=== PATIENT | female | born 1975 | race Caucasian/White ===

== ENCOUNTER 2017-03-04 17:05 | Inpatient (IN) | payer MEDICAID, SELFPAY ==
--- NOTE | 2017-03-04 19:49 | C.PDOC ---
Time Seen by Provider: 03/04/17 19:48 Chief Complaint (Nursing): Dizziness/Lightheaded Past Medical History Vital Signs: Last Vital Signs Temp 98.8 F 03/04/17 17:56 Pulse 93 H 03/04/17 17:56 Resp 20 03/04/17 17:56 BP 105/65 03/04/17 17:56 Pulse Ox 100 03/04/17 17:56 - Social History Hx Alcohol Use: No Hx Substance Use: No - Immunization History Hx Tetanus Toxoid Vaccination: Yes Hx Influenza Vaccination: No Hx Pneumococcal Vaccination: No ED Course And Treatment O2 Sat by Pulse Oximetry: 100 Disposition Counseled Patient/Family Regarding: Studies Performed, Diagnosis - Disposition Disposition Time: 19:49
--- NOTE | 2017-03-04 19:51 | C.PDOC ---
History Of Present Illness 41 year old female presents to the ED c/o generalized weakness and malaise, patient states she feels very weak when she walks. Patient is also c/o a dull throbbing headache, she also reports that for the last 2 weeks has noticed some rectal bleeding with bowel movements. Patient's LMP was last week. Patient denies nausea, vomit, diarrhea, back pain, vaginal discharge, vaginal bleeding. Time Seen by Provider: 03/04/17 19:48 Chief Complaint (Nursing): Dizziness/Lightheaded History Per: Patient History/Exam Limitations: no limitations Onset/Duration Of Symptoms: Days Current Symptoms Are (Timing): Still Present Recent travel outside of the [place]: No Additional History Per: Patient Past Medical History Reviewed: Historical Data, Nursing Documentation, Vital Signs Vital Signs: Last Vital Signs Temp 97.8 F 03/04/17 20:20 Pulse 86 03/04/17 20:20 Resp 18 03/04/17 20:20 BP 120/49 L 03/04/17 20:20 Pulse Ox 100 03/04/17 21:16 - Medical History PMH: No Chronic Diseases Surgical History: No Surg Hx Family History: States: No Known Family Hx - Social History Hx Alcohol Use: No Hx Substance Use: No - Immunization History Hx Tetanus Toxoid Vaccination: Yes Hx Influenza Vaccination: No Hx Pneumococcal Vaccination: No Review Of Systems Constitutional: Positive for: Weakness, Malaise. Negative for: Fever, Chills ENT: Negative for: Throat Pain Cardiovascular: Negative for: Chest Pain, Palpitations Respiratory: Negative for: Cough, Shortness of Breath Gastrointestinal: Positive for: Other (rectal bleeding). Negative for: Nausea, Vomiting, Abdominal Pain Genitourinary: Negative for: Dysuria, Vaginal Discharge, Vaginal Bleeding Musculoskeletal: Negative for: Neck Pain Skin: Positive for: Other (very pale). Negative for: Rash Neurological: Positive for: Headache. Negative for: Weakness, Numbness Physical Exam - Physical Exam Appears: Non-toxic Skin: Warm, Dry, Pale Head: Normacephalic Eye(s): bilateral: Normal Inspection Nose: No Discharge, No Deformity Oral Mucosa: Moist Tongue: Other (very pale) Neck: Trachea Midline, Supple Chest: Symmetrical Cardiovascular: Rhythm Regular, No Murmur Respiratory: No Decreased Breath Sounds, No Rales, No Rhonchi, No Wheezing Gastrointestinal/Abdominal: Soft, No Tenderness, No Distention, No Guarding, No Rebound Rectal: No Hemorrhoids, No Tenderness, Other (empty rectal vault) Back: CVA Tenderness Extremity: Normal ROM, No Pedal Edema, No Calf Tenderness, Capillary Refill (< 2 seconds), No Deformity, No Swelling Extremity: Bilateral: Atraumatic, Normal Color And Temperature Pulses: Left Dorsalis Pedis: Normal, Right Dorsalis Pedis: Normal Neurological/Psych: Oriented x3 Gait: Steady ED Course And Treatment - Laboratory Results Result Diagrams: 03/04/17 20:37 03/04/17 20:37 ECG: Interpreted By Me, Viewed By Me ECG Rhythm: Sinus Rhythm (87), Nonspecific Changes O2 Sat by Pulse Oximetry: 100 (On RA) Pulse Ox Interpretation: Normal Progress Note: Plan: -Labs. -IV fluids. -Protonix 80 mg IV. -UA. Patient's Hb was 5.5 Critical Care Time - Critical Care Note Total Time (in mins): 30 Documented critical care: time excludes all time spent performing seperately billable procedures. Disposition Discussed With DrJemma: Miky Boo Comment: accepted the pt on his service and took over the care at 9:25 PM Doctor Will See Patient In The: ED Counseled Patient/Family Regarding: Studies Performed, Diagnosis - Disposition Disposition: HOSPITALIZED Disposition Time: 19:51 Condition: FAIR Forms: [facility] (Tuvaluan) - POA Present On Arrival: None - Clinical Impression Clinical Impression: Dizziness, Anemia, GI bleed - Scribe Statement The provider has reviewed the documentation as recorded by the Scribe Micheal Marroquin All medical record entries made by the Scribe were at my direction and personally dictated by me. I have reviewed the chart and agree that the record accurately reflects my personal performance of the history, physical exam, medical decision making, and the department course for this patient. I have also personally directed, reviewed, and agree with the discharge instructions and disposition. Decision To Admit - Pt Status Changed To: Hospital Disposition Of: Inpatient - Admit Certification Admit to Inpatient:: After my assessment, the patient will require hospitalization for at least two midnights. This is because of the severity of symptoms shown, intensity of services needed, and/or the medical risk in this patient being treated as an outpatient. - InPatient: Physician Admission Certification: I certify that this patient requires 2 or more midnights of care for the following reason:: After my assessment, the patient will require hospitalization for at least two midnights. This is because of the severity of symptoms shown, intensity of services needed, and/or the medical risk in this patient being treated as an outpatient. - . Bed Request Type: Regular Admitting Physician: Miky Boo Patient Diagnosis: Dizziness, Anemia, GI bleed
[2017-03-04] MEDS ORDERED: Sodium Chloride 0.9% 1,000 ML IV ONE (19:59)
[2017-03-04] MEDS ORDERED: Pantoprazole 80 MG in Sodium Chloride 0.9% 100 ML IV STA (19:59)
[2017-03-04] MEDS ORDERED: Sodium Chloride 0.9% 1,000 ML ONE (20:15)
[2017-03-04 20:56] LABS: BASO # 0.1 K/uL (0.0-0.2); BASO % 0.9 % (0.0-2.0); EOS # 0.5 K/uL (0.0-0.7); LYMPH # 3.8 K/uL (1.0-4.3); LYMPH % 30.2 % (20.0-40.0); MEAN CORPUSCULAR HEMOGLOBIN 19.4 pg (27.0-31.0); MEAN CORPUSCULAR HGB CONC 29.9 g/dL (33.0-37.0); MEAN PLATELET VOLUME 7.5 fL (7.2-11.7); MONO # 1.1 K/uL (0.0-0.8); MONO % 8.5 % (0.0-10.0); NEUT # 7.1 K/uL (1.8-7.0); NEUT % 56.4 % (50.0-75.0); NRBC % 0.3 % (0.0-2.0); RBC 2.67 Mil/uL (3.80-5.20); RED CELL DISTRIBUTION WIDTH 19.1 % (11.5-14.5)
[2017-03-04 20:57] LABS: MEAN CELL VOLUME 64.8 fL (81.0-99.0); WHITE BLOOD COUNT 12.6 K/uL (4.8-10.8)
[2017-03-04 20:58] LABS: HEMOGLOBIN 5.2 g/dL (11.0-16.0); PROTHROMBIN TIME 11.3 SECONDS (9.7-12.2)
[2017-03-04 21:01] LABS: ALBUMIN 3.9 g/dL (3.5-5.0); ALT/SGPT 29 U/L (9-52); AST/SGOT 18 U/L (14-36); BLOOD UREA NITROGEN 10 mg/dL (7-17); CALCIUM 8.5 mg/dl (8.6-10.4); GFR AFRICAN-AMERICAN > 60; GFR NON-AFRICAN AMERICAN > 60
[2017-03-04 21:07] LABS: HCG,QUALITATIVE URINE NEGATIVE (NEGATIVE); SQUAMOUS EPITHIAL 1 /hpf (0-5); URINE BILIRUBIN NEGATIVE (NEGATIVE); URINE BLOOD NEGATIVE (NEGATIVE); URINE CLARITY Clear (Clear); URINE COLOR Yellow (YELLOW); URINE GLUCOSE (UA) NORMAL (Normal); URINE LEUKOCYTE ESTERASE NEG Leu/uL (Negative); URINE NITRATE NEGATIVE (NEGATIVE); URINE PROTEIN NEGATIVE (NEGATIVE); URINE UROBILINOGEN NORMAL mg/dL (0.2-1.0)
[2017-03-04] MEDS ORDERED: Iohexol 240 (50 ml) PO ONE (21:24)
--- NOTE | 2017-03-04 21:28 | CP.PCM.HP ---
<Nciole Palacios - Last Filed: 03/05/17 01:09> History of Present Illness - History of Present Illness History of Present Illness: Medicine Note for Hospitalist Service CC: blood through rectum x 7 days HPI: 41 Female with no significant PMHx presents to the ED with rectal bleeding x 7 days. Patient reports on 02/25/17 she started to have bowel movements with BRBPR x 2-3 episodes daily. She reports not suffering from constipation so she would have normal daily BM. However, starting last week she would have 2-3 bloody BM daily. She started to feel dizzy, lightheaded, SOB, chest discomfort, weakness, and fatigue on 03/02/17. She reported this happened to her 3-4 months ago, lasting 2-3 days and then resolved on its own. She understood this is abnormal but was hesitant to come to the hospital. Last bloody BM was day of admission at 4 PM. Denied any endoscopy or colonoscopy in the past. Admitted to chills, chest discomfort, SOB, and weakness. Denied fever , headache, abdominal pain, n/v/d/c, or urinary symptoms. PMHx: Denied PSHx: Denied Meds: Denied SHx: Denied x3 FHx: Mother of colon cancer (age 50-60s) OBHx/GYNHx: LMP 02/23/17, normal menses every month, lasting 5-6 days using average 3-4 pads per day. 8 vaginal deliveries with no complications, no blood transfusions in the past. PMD: None Present on Admission - Present on Admission Any Indicators Present on Admission: No Past Patient History - Past Social History Smoking Status: Never Smoked - PSYCHIATRIC Hx Substance Use: No - SURGICAL HISTORY Hx Surgeries: No Meds Allergies/Adverse Reactions: Allergies Allergy/AdvReac Type Severity Reaction Status Date / Time No Known Allergies Allergy Verified 03/04/17 17:58 Physical Exam - Constitutional Appears: No Acute Distress - Head Exam Head Exam: NORMAL INSPECTION, NORMOCEPHALIC - Eye Exam Eye Exam: EOMI, PERRL (Conjunctival pallor ) Pupil Exam: NORMAL ACCOMODATION - ENT Exam ENT Exam: Mucous Membranes Moist Additional comments: sublingual pallor - Neck Exam Neck exam: Positive for: Normal Inspection - Respiratory Exam Respiratory Exam: Clear to Auscultation Bilateral, NORMAL BREATHING PATTERN. absent: Decreased Breath Sounds - Cardiovascular Exam Cardiovascular Exam: Tachycardia, Systolic Murmur (noted ) - GI/Abdominal Exam GI & Abdominal Exam: Hypoactive Bowel Sounds, Normal Bowel Sounds, Soft. absent : Distended, Firm, Guarding, Hernia, Mass, Organomegaly, Rigid, Tenderness - Rectal Exam Rectal Exam: Deferred (SOLOMON performed by ED physician. No external hemorrhoids, no stool in rectal vault. No blood on exam.) - Extremities Exam Extremities exam: Positive for: normal inspection, pedal pulses present. Negative for: pedal edema, tenderness - Back Exam Back exam: NORMAL INSPECTION - Neurological Exam Neurological exam: Alert, CN II-XII Intact, Oriented x3 - Psychiatric Exam Psychiatric exam: Normal Affect, Normal Mood - Skin Skin Exam: Dry, Intact, Normal Color, Warm Results - Vital Signs Recent Vital Signs: Last Vital Signs Temp 97.8 F 03/04/17 20:20 Pulse 86 03/04/17 20:20 Resp 18 03/04/17 20:20 BP 120/49 L 03/04/17 20:20 Pulse Ox 100 03/04/17 21:27 - Labs Result Diagrams: 03/04/17 20:37 03/04/17 20:37 Labs: Laboratory Results - last 24 hr 03/04/17 03/04/17 03/04/17 20:37 20:37 20:37 WBC 12.6 H D RBC 2.67 L Hgb 5.2 L* D Hct 17.3 L MCV 64.8 L D MCH 19.4 L MCHC 29.9 L RDW 19.1 H Plt Count 594 H D MPV 7.5 Neut % (Auto) 56.4 Lymph % (Auto) 30.2 Weld % (Auto) 8.5 Eos % (Auto) 4.0 Baso % (Auto) 0.9 Neut # 7.1 H Lymph # 3.8 Weld # 1.1 H Eos # 0.5 Baso # 0.1 PT 11.3 INR 1.0 APTT 26 Sodium Potassium Chloride Carbon Dioxide Anion Gap BUN Creatinine Est GFR ( Amer) Est GFR (Non-Af Amer) Random Glucose Calcium Total Bilirubin AST ALT Alkaline Phosphatase Total Protein Albumin Globulin Albumin/Globulin Ratio Urine Color Yellow Urine Clarity Clear Urine pH 6.0 Ur Specific [place] 1.016 Urine Protein Negative Urine Glucose (UA) Normal Urine Ketones Negative Urine Blood Negative Urine Nitrate Negative Urine Bilirubin Negative Urine Urobilinogen Normal Ur Leukocyte Esterase Neg Urine WBC (Auto) < 1 Urine RBC (Auto) < 1 Ur Squamous Epith Cells 1 Urine HCG, Qual Negative Stool Occult Blood Blood Type 03/04/17 03/04/17 03/04/17 20:37 20:37 21:06 WBC RBC Hgb Hct MCV MCH MCHC RDW Plt Count MPV Neut % (Auto) Lymph % (Auto) Weld % (Auto) Eos % (Auto) Baso % (Auto) Neut # Lymph # Weld # Eos # Baso # PT INR APTT Sodium 136 Potassium 4.0 Chloride 104 Carbon Dioxide 22 Anion Gap 14 BUN 10 Creatinine 0.6 L Est GFR ( Amer) > 60 Est GFR (Non-Af Amer) > 60 Random Glucose 104 Calcium 8.5 L Total Bilirubin 0.4 AST 18 ALT 29 Alkaline Phosphatase 138 H Total Protein 7.9 Albumin 3.9 Globulin 4.0 H Albumin/Globulin Ratio 1.0 Urine Color Urine Clarity Urine pH Ur Specific [place] Urine Protein Urine Glucose (UA) Urine Ketones Urine Blood Urine Nitrate Urine Bilirubin Urine Urobilinogen Ur Leukocyte Esterase Urine WBC (Auto) Urine RBC (Auto) Ur Squamous Epith Cells Urine HCG, Qual Stool Occult Blood Negative Blood Type O POSITIVE Assessment & Plan - Assessment and Plan (Free Text) Assessment: 1 Female with no significant PMHx presents to the ED with rectal bleeding x 7 days, suspecting lower GI bleed. Plan: Suspecting Chronic Lower GI Bleed GI consulted - Dr. Young - help appreciated SOLOMON performed by ED physician, no external hemorrhoids, no stool in rectal vault, no blood noted FOBT negative Imaging: CT Scan Abdomen/Pelvis with PO & IV contrast: Meds: NPO, NS @ 100cc/hr Was placed on Protonix Drip in the ED Zofran PRN Iron Deficiency Anemia Last visit was in 2013 H/H was 9.8/30.4 (patient was at the time) On admission: H/H 5.2/17.3 Consent obtained, will be transfused 2 units PRBCs Anemia workup drawn prior to blood transfusion, pending further labs, Iron < 10 Will need to start IV Ferrlecit Prophylactic Measures GI PPX: Protonix 40mg IVP daily DVT PPX: SCDs, VTE c/i NPO DW Dr. BooNicole DO, PGY-1 <[email or web address] P - Last Filed: 03/05/17 06:37> Results - Vital Signs Recent Vital Signs: Last Vital Signs Temp 98.5 F 03/05/17 06:00 Pulse 86 03/05/17 06:00 Resp 18 03/05/17 06:00 BP 102/60 03/05/17 06:00 Pulse Ox 99 03/05/17 06:00 - Labs Result Diagrams: 03/04/17 20:37 03/04/17 20:37 Labs: Laboratory Results - last 24 hr 03/04/17 03/04/17 03/04/17 20:37 20:37 20:37 WBC 12.6 H D RBC 2.67 L Hgb 5.2 L* D Hct 17.3 L MCV 64.8 L D MCH 19.4 L MCHC 29.9 L RDW 19.1 H Plt Count 594 H D MPV 7.5 Neut % (Auto) 56.4 Lymph % (Auto) 30.2 Weld % (Auto) 8.5 Eos % (Auto) 4.0 Baso % (Auto) 0.9 Neut # 7.1 H Lymph # 3.8 Weld # 1.1 H Eos # 0.5 Baso # 0.1 PT 11.3 INR 1.0 APTT 26 Sodium Potassium Chloride Carbon Dioxide Anion Gap BUN Creatinine Est GFR ( Amer) Est GFR (Non-Af Amer) Random Glucose Calcium Iron TIBC % Saturation Ferritin Total Bilirubin AST ALT Alkaline Phosphatase Total Protein Albumin Globulin Albumin/Globulin Ratio Vitamin B12 Urine Color Yellow Urine Clarity Clear Urine pH 6.0 Ur Specific [place] 1.016 Urine Protein Negative Urine Glucose (UA) Normal Urine Ketones Negative Urine Blood Negative Urine Nitrate Negative Urine Bilirubin Negative Urine Urobilinogen Normal Ur Leukocyte Esterase Neg Urine WBC (Auto) < 1 Urine RBC (Auto) < 1 Ur Squamous Epith Cells 1 Urine HCG, Qual Negative Stool Occult Blood Blood Type Antibody Screen 03/04/17 03/04/17 03/04/17 20:37 20:37 21:06 WBC RBC Hgb Hct MCV MCH MCHC RDW Plt Count MPV Neut % (Auto) Lymph % (Auto) Weld % (Auto) Eos % (Auto) Baso % (Auto) Neut # Lymph # Weld # Eos # Baso # PT INR APTT Sodium 136 Potassium 4.0 Chloride 104 Carbon Dioxide 22 Anion Gap 14 BUN 10 Creatinine 0.6 L Est GFR ( Amer) > 60 Est GFR (Non-Af Amer) > 60 Random Glucose 104 Calcium 8.5 L Iron TIBC % Saturation Ferritin Total Bilirubin 0.4 AST 18 ALT 29 Alkaline Phosphatase 138 H Total Protein 7.9 Albumin 3.9 Globulin 4.0 H Albumin/Globulin Ratio 1.0 Vitamin B12 Urine Color Urine Clarity Urine pH Ur Specific [place] Urine Protein Urine Glucose (UA) Urine Ketones Urine Blood Urine Nitrate Urine Bilirubin Urine Urobilinogen Ur Leukocyte Esterase Urine WBC (Auto) Urine RBC (Auto) Ur Squamous Epith Cells Urine HCG, Qual Stool Occult Blood Negative Blood Type O POSITIVE Antibody Screen Negative 03/04/17 03/04/17 23:25 23:25 WBC RBC Hgb Hct MCV MCH MCHC RDW Plt Count MPV Neut % (Auto) Lymph % (Auto) Weld % (Auto) Eos % (Auto) Baso % (Auto) Neut # Lymph # Weld # Eos # Baso # PT INR APTT Sodium Potassium Chloride Carbon Dioxide Anion Gap BUN Creatinine Est GFR ( Amer) Est GFR (Non-Af Amer) Random Glucose Calcium Iron < 10 L TIBC 445 % Saturation 2.2 L Ferritin 16.6 Total Bilirubin AST ALT Alkaline Phosphatase Total Protein Albumin Globulin Albumin/Globulin Ratio Vitamin B12 501 Urine Color Urine Clarity Urine pH Ur Specific [place] Urine Protein Urine Glucose (UA) Urine Ketones Urine Blood Urine Nitrate Urine Bilirubin Urine Urobilinogen Ur Leukocyte Esterase Urine WBC (Auto) Urine RBC (Auto) Ur Squamous Epith Cells Urine HCG, Qual Stool Occult Blood Blood Type Antibody Screen Attending/Attestation - Attestation I have personally seen and examined this patient.: Yes I have fully participated in the care of the patient.: Yes I have reviewed all pertinent clinical information: Yes Notes (Text): Assessment * Iron def, anemia with rectal bleeding mixed with stool, 7 day history but likely chronic due to microcytosis, maintained vital, no malignancy on ct abd/ pelvis. * 8 vaginal deliveries living children Plan * PRBC * GI for colonoscopy * supplement iron * avoid meds for dvt prophylaxis due to gi bleeding. * See orderer for detail.
[2017-03-04] MEDS ORDERED: Iohexol 240 (50 ml) ONE (22:01)
[2017-03-04] MEDS ORDERED: Iohexol 350mg/ml 100 ML ONE (22:16)
[2017-03-04 23:38] LABS: IRON < 10 ug/dL (37-170)
[2017-03-04] MEDS: Sodium Chloride 0.9% 1,000 ML IV SCH (23:45)
[2017-03-04 23:49] LABS: % IRON SATURATION 2.2 (20-55); TOTAL IRON BINDING CAPACITY 445 ug/dL (250-450)
[2017-03-05 00:13] LABS: FERRITIN 16.6 ng/mL
[2017-03-05] MEDS ORDERED: Ferric Sodium Gluconat Complex 62.5 mg/5 ml Vial IVPB SCH (10:00)
[2017-03-05 10:30] LABS: BASO # 0.1 K/uL (0.0-0.2); BASO % 0.8 % (0.0-2.0); EOS # 0.4 K/uL (0.0-0.7); EOS % 4.1 % (0.0-4.0); LYMPH # 2.6 K/uL (1.0-4.3); MEAN CORPUSCULAR HEMOGLOBIN 22.3 pg (27.0-31.0); MEAN CORPUSCULAR HGB CONC 31.5 g/dL (33.0-37.0); MEAN PLATELET VOLUME 7.4 fL (7.2-11.7); MONO # 0.8 K/uL (0.0-0.8); MONO % 8.8 % (0.0-10.0); NEUT # 5.4 K/uL (1.8-7.0); NEUT % 58.3 % (50.0-75.0); NRBC % 0.2 % (0.0-2.0); RBC 3.14 Mil/uL (3.80-5.20); RED CELL DISTRIBUTION WIDTH 25.9 % (11.5-14.5); WHITE BLOOD COUNT 9.3 K/uL (4.8-10.8)
[2017-03-05 10:31] LABS: MEAN CELL VOLUME 70.7 fL (81.0-99.0)
[2017-03-05] MEDS: Ferric Sodium Gluconat Complex 125 MG in Sodium Chloride 0.9% 100 ML IVPB SCH (11:00)
[2017-03-05] MEDS: Sodium Chloride 0.9% 1,000 ML IV SCH ×2 (11:06→19:20)
[2017-03-05 11:26] LABS: ALBUMIN 3.4 g/dL (3.5-5.0); ALT/SGPT 33 U/L (9-52); AST/SGOT 18 U/L (14-36); BLOOD UREA NITROGEN 6 mg/dL (7-17); CALCIUM 8.1 mg/dl (8.6-10.4); GFR AFRICAN-AMERICAN > 60; GFR NON-AFRICAN AMERICAN > 60; HDL CHOLESTEROL 19 mg/dL (30-70); MAGNESIUM 2.1 mg/dL (1.6-2.3)
[2017-03-05 11:36] LABS: LDL CHOLESTEROL 80 mg/dL (0-129)
--- NOTE | 2017-03-05 11:36 | CT ---
PROCEDURE: CT abdomen and pelvis dated 03/04/2017 HISTORY: GI bleed COMPARISON: No prior TECHNIQUE: Contiguous axial images of the abdomen and pelvis pelvis following oral and intravenous contrast. Coronal and sagittal reformats generated. Radiation dose: Total exam DLP = 1121.95 mGy-cm. This CT exam was performed using one or more of the following dose reduction techniques: Automated exposure control, adjustment of the mA and/or kV according to patient size, and/or use of iterative reconstruction technique. Contrast dose: 100 cc Omnipaque 350 FINDINGS: LOWER THORAX: Lung bases clear. No infiltrate effusion or basilar pneumothorax. There is a small hiatal hernia with slight wall thickening of the distal esophagus that could be due to protrusion of gastric mucosa. Esophagitis or other intrinsic/invasive wall lesion should be excluded. Consider followup endoscopy. LIVER: The liver is enlarged measuring nearly 21 cm in CC dimension. Very minor diffuse fatty hepatic infiltration. No obvious hepatic mass collection or calcification. Portal and splenic veins are opacified. GALLBLADDER AND BILE DUCTS: Gallbladder is physiologically distended. No evidence of intraluminal gallbladder calculi. PANCREAS: The pancreas appears grossly unremarkable without masses collections or calcifications. SPLEEN: Spleen exhibits normal size. There is a small calcification within the posteromedial aspect of the splenic parenchyma which appears to be associated with a small round/ elliptical shaped 11 mm enhancing mass that could represent a small splenic artery aneurysm or possibly a hemangioma. Followup ultrasound recommended to further characterize this area. ADRENALS: There are no adrenal lesions. KIDNEYS AND URETERS: Kidneys that demonstrate symmetric the nephrograms. No evidence of nephrolithiasis or hydronephrosis. . There is a small approximately 0.5 mm rounded focus of low attenuation posterior inferior aspect left renal cortex that exhibits Hounsfield units in the negative single digits. This could represent a small angiomyolipoma. Consider followup renal ultrasound for further evaluation. BLADDER: Grossly the urinary bladder is physiologically distended. No evidence of intraluminal urinary bladder calculi. REPRODUCTIVE: Uterus appears grossly unremarkable. . Small prominent follicular cyst or small ovarian cyst right ovary. Consider followup pelvic ultrasound the the APPENDIX: The appendix is not seen with certainty on this exam. No evidence suggest acute appendicitis. BOWEL: Evaluation of the bowel is limited due to incomplete opacification. Prominent rugal folds of could be in part due to incomplete distention however gastritis must be excluded. Clinical correlation recommended. Visualized loops of small bowel exhibit normal contour and caliber. No evidence acute mechanical small bowel obstruction. There are a few scattered colonic diverticula however no radiographic evidence of acute diverticulitis. PERITONEUM: Unremarkable. No fluid collection. No free air. Small fat containing umbilical hernia LYMPH NODES: No significant bulky adenopathy. . VASCULATURE: Unremarkable. No aortic aneurysm. BONES: Few small scattered lucencies seen throughout the lumbar and lower thoracic spine nonspecific. Consider follow-up bone scan to exclude aggressive pathology OTHER FINDINGS: None. IMPRESSION: Mild hepatomegaly and fatty hepatic infiltration. . Small calcifications associated surrounding and/or adjacent to of white appears represent a small approximately 11 mm mass density located in the splenic hilar region. . Rule out small hemangioma or possibly splenic artery aneurysm. . Consider follow-up of ultrasound for further evaluation Small hiatal hernia with wall thickening of the distal esophagus and prominent gastric rugal folds ; followup endoscopy recommended further evaluation. 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 Few scattered colonic diverticula however no radiographic evidence of acute diverticulitis. Few small scattered lucencies seen throughout the lumbar and lower thoracic spine nonspecific. Consider follow-up bone scan to exclude aggressive pathology Suspect a small ovarian cyst or prominent follicular cyst right ovary. Consider followup pelvic ultrasound Note this report was placed in PA review folder for followup Follow-up CT scan at interval recommended to assess stability.
--- NOTE | 2017-03-05 12:49 | CARD ---
APPROVED REPORT EKG Measurement Heart [id number] <Conclusion> Normal sinus rhythm Normal ECG
[2017-03-05] MEDS ORDERED: Peg-Electrolyte Oral Soln 4L (Golytely) PO ONE (18:00)
--- NOTE | 2017-03-05 18:45 | CP.PCM.PN ---
<Tomer Murray - Last Filed: 03/05/17 18:56> Subjective - Date & Time of Evaluation Date of Evaluation: 03/05/17 Time of Evaluation: 06:41 - Subjective Subjective: Dr. Hector Goode Service, Tomer Murray PGY1 Patient was seen and examined at bedside. Per nursing no acute events occurred overnight. The patient was reporting some fatigue this morning and also some dizziness. At the time of examination the patient had yet to have a bowel movement. The patient denies any chest pain, abdominal pain, fevers, chills, changes in vision, nausea, vomiting, or any other complaints. Objective - Vital Signs/Intake and Output Vital Signs (last 24 hours): Temp Pulse Resp BP Pulse Ox 97.8 F 76 20 104/64 96 03/05/17 17:59 03/05/17 16:00 03/05/17 16:00 03/05/17 16:00 03/05/17 16:00 - Medications Medications: Current Medications Sodium Chloride (Sodium Chloride 0.9%) 1,000 mls @ 100 mls/hr IV .Q10H [facility] Last Admin: 03/05/17 11:06 Dose: 100 mls/hr Ferric Sodium Gluconate Complex 125 mg/ Sodium Chloride 110 mls @ 110 mls/hr IVPB DAILY [facility] Stop: 03/13/17 10:01 Last Admin: 03/05/17 11:00 Dose: 110 mls/hr Ondansetron HCl (Zofran Inj) 4 mg IVP Q6 PRN PRN Reason: Nausea/Vomiting Pantoprazole Sodium (Protonix Inj) 40 mg IVP DAILY [facility] Last Admin: 03/05/17 11:00 Dose: 40 mg Polyethylene Glycol/Electrolytes (Golytely) 2,000 ml PO ONCE ONE Stop: 03/06/17 06:01 - Labs Labs: 03/05/17 10:07 03/05/17 04:00 PT 11.3 SECONDS (9.7-12.2) 03/04/17 20:37 INR 1.0 03/04/17 20:37 APTT 26 SECONDS (21-34) 03/04/17 20:37 - Head Exam Head Exam: ATRAUMATIC, NORMAL INSPECTION, NORMOCEPHALIC - Eye Exam Eye Exam: EOMI, Normal appearance, PERRL Pupil Exam: NORMAL ACCOMODATION, PERRL. absent: Irregular, Unequal - ENT Exam ENT Exam: Mucous Membranes Moist, Normal Exam, Normal Oropharynx - Neck Exam Neck Exam: absent: Lymphadenopathy, Thyromegaly - Respiratory Exam Respiratory Exam: Clear to Ausculation Bilateral, NORMAL BREATHING PATTERN. absent: Prolonged Expiratory Phase, Respiratory Distress - Cardiovascular Exam Cardiovascular Exam: REGULAR RHYTHM, RRR, +S1, +S2. absent: Gallop, Rubs - GI/Abdominal Exam GI & Abdominal Exam: Soft, Normal Bowel Sounds. absent: Hyperactive Bowel Sounds - Extremities Exam Extremities Exam: Normal Inspection. absent: Joint Swelling, Pedal Edema, Tenderness - Back Exam Back Exam: NORMAL INSPECTION. absent: CVA tenderness (L), CVA tenderness (R), paraspinal tenderness - Neurological Exam Neurological Exam: Alert, Awake, CN II-XII Intact, Oriented x3 - Psychiatric Exam Psychiatric exam: Normal Affect, Normal Mood - Skin Skin Exam: Dry, Intact, Normal Color Assessment and Plan - Assessment and Plan (Free Text) Assessment: 41 Female with no significant PMHx presents to the ED with rectal bleeding x 7 days, suspecting lower GI bleed. Plan: Suspecting Chronic Lower GI Bleed GI consulted - Dr. Hoang- help appreciated SOLOMON performed by ED physician, no external hemorrhoids, no stool in rectal vault, no blood noted FOBT negative Expected to have 2 Units of PRBC tranfused. Follow up with 5a.m. CBC. Expected to have Colonoscopy on Thursday possibly. Will f/u with GI rec's. Imaging: CT Scan Abdomen/Pelvis with PO & IV contrast: mild hepatomegaly and fatty hepatic infiltration. small calcifications associated surrounding adjacent to white appears to reprsent a small approximatlely 11mm mass density located in the splenic hilar region. rule out small hemagioma, small hiatal hernia, suspect small ovarian cyst or prominent follicular cyst right ovary (For full report see Imaging report) Meds: Liquid diet, Continue NS @100CC/HR Continue Protonix Drip Continue Zofran PRN Iron Deficiency Anemia Last visit was in 2013 H/H was 9.8/30.4 (patient was at the time) On admission: H/H 5.2/17.3 Consent obtained. There was a delay in transfusion today. Expected to be transfused overnight. Patient will have a repeat CBC done at 5 a.m. Anemia workup: Iron < 10, TIBC:445, % Saturation 2.2, Ferritin :166 Continue IV Ferrlecit Prophylactic Measures GI PPX: Protonix 40mg IVP daily DVT PPX: SCDs, VTE c/i Disposition: Patient is a full code Elected Neel to be her proxy in case she can no longer make medical decisions. <Hector Goode - Last Filed: 03/05/17 20:13> Objective - Vital Signs/Intake and Output Vital Signs (last 24 hours): Temp Pulse Resp BP Pulse Ox 98.2 F 78 20 106/65 96 03/05/17 20:03 03/05/17 20:03 03/05/17 20:03 03/05/17 20:03 03/05/17 16:00 Intake and Output: 03/05/17 03/06/17 18:59 06:59 Intake Total 0 Balance 0 - Medications Medications: Current Medications Sodium Chloride (Sodium Chloride 0.9%) 1,000 mls @ 100 mls/hr IV .Q10H [facility] Last Admin: 03/05/17 19:20 Dose: Not Given Ferric Sodium Gluconate Complex 125 mg/ Sodium Chloride 110 mls @ 110 mls/hr IVPB DAILY [facility] Stop: 03/13/17 10:01 Last Admin: 03/05/17 11:00 Dose: 110 mls/hr Ondansetron HCl (Zofran Inj) 4 mg IVP Q6 PRN PRN Reason: Nausea/Vomiting Pantoprazole Sodium (Protonix Inj) 40 mg IVP DAILY [facility] Last Admin: 03/05/17 11:00 Dose: 40 mg Polyethylene Glycol/Electrolytes (Golytely) 2,000 ml PO ONCE ONE Stop: 03/06/17 06:01 - Labs Labs: 03/05/17 10:07 03/05/17 04:00 PT 11.3 SECONDS (9.7-12.2) 03/04/17 20:37 INR 1.0 03/04/17 20:37 APTT 26 SECONDS (21-34) 03/04/17 20:37 Attending/Attestation - Attestation I have personally seen and examined this patient.: Yes I have fully participated in the care of the patient.: Yes I have reviewed all pertinent clinical information, including history, physical exam and plan: Yes Notes (Text): 03/05/17 20:12 Patient was seen and examined at 9:15 AM in the ER 03/05/17 with Daughter present who translated Algerian. History, Exam, Assessment and Plan were thoroughly gone over with the resident. Hector Goode D.O.
[2017-03-06] MEDS: Sodium Chloride 0.9% 1,000 ML IV SCH (04:20)
[2017-03-06] MEDS ORDERED: Peg-Electrolyte Oral Soln 4L (Golytely) PO ONE (06:00)
[2017-03-06] MEDS: Ferric Sodium Gluconat Complex 125 MG in Sodium Chloride 0.9% 100 ML IVPB SCH (10:46)
[2017-03-06 11:03] LABS: BASO # 0.1 K/uL (0.0-0.2); BASO % 0.9 % (0.0-2.0); EOS # 0.4 K/uL (0.0-0.7); EOS % 4.9 % (0.0-4.0); LYMPH # 2.4 K/uL (1.0-4.3); LYMPH % 32.4 % (20.0-40.0); MEAN CORPUSCULAR HEMOGLOBIN 24.7 pg (27.0-31.0); MEAN CORPUSCULAR HGB CONC 33.4 g/dL (33.0-37.0); MEAN PLATELET VOLUME 7.5 fL (7.2-11.7); MONO # 0.6 K/uL (0.0-0.8); MONO % 7.7 % (0.0-10.0); NEUT # 4.1 K/uL (1.8-7.0); NEUT % 54.1 % (50.0-75.0); NRBC % 0.5 % (0.0-2.0); RBC 3.75 Mil/uL (3.80-5.20); RED CELL DISTRIBUTION WIDTH 26.3 % (11.5-14.5); WHITE BLOOD COUNT 7.5 K/uL (4.8-10.8)
[2017-03-06 11:04] LABS: HEMOGLOBIN 9.2 g/dL (11.0-16.0); MEAN CELL VOLUME 73.9 fL (81.0-99.0)
[2017-03-06 11:10] LABS: ALBUMIN 3.7 g/dL (3.5-5.0); ALT/SGPT 24 U/L (9-52); AST/SGOT 29 U/L (14-36); BLOOD UREA NITROGEN 5 mg/dL (7-17); CALCIUM 8.7 mg/dl (8.6-10.4); GFR AFRICAN-AMERICAN > 60; GFR NON-AFRICAN AMERICAN > 60; MAGNESIUM 2.2 mg/dL (1.6-2.3)
--- NOTE | 2017-03-06 15:19 | CP.PCM.PN ---
<Tomer Murray - Last Filed: 03/06/17 18:47> Subjective - Date & Time of Evaluation Date of Evaluation: 03/06/17 Time of Evaluation: 07:18 - Subjective Subjective: Dr. Hector Goode Service, Tomer Murray PGY1 Patient was seen and examined at bedside. Per nursing no acute events occurred overnight. The patient was reporting some dizziness this morning. The patient denies any blood being present in the stool. The patient denies any chest pain, abdominal pain, fevers, chills, changes in vision, nausea, vomiting, or any other complaints. Objective - Vital Signs/Intake and Output Vital Signs (last 24 hours): Temp Pulse Resp BP Pulse Ox 98.2 F 70 20 127/78 100 03/06/17 08:00 03/06/17 08:00 03/06/17 08:00 03/06/17 08:00 03/06/17 08:00 Intake and Output: 03/06/17 03/06/17 06:59 18:59 Intake Total 2725 760 Balance 2725 760 - Medications Medications: Current Medications Ferric Sodium Gluconate Complex 125 mg/ Sodium Chloride 110 mls @ 110 mls/hr IVPB DAILY [facility] Stop: 03/13/17 10:01 Last Admin: 03/06/17 10:46 Dose: 110 mls/hr Ondansetron HCl (Zofran Inj) 4 mg IVP Q6 PRN PRN Reason: Nausea/Vomiting Pantoprazole Sodium (Protonix Inj) 40 mg IVP DAILY [facility] Last Admin: 03/06/17 10:47 Dose: 40 mg - Labs Labs: 03/06/17 10:37 03/06/17 10:37 PT 11.3 SECONDS (9.7-12.2) 03/04/17 20:37 INR 1.0 03/04/17 20:37 APTT 26 SECONDS (21-34) 03/04/17 20:37 - Head Exam Head Exam: ATRAUMATIC, NORMAL INSPECTION, NORMOCEPHALIC - Eye Exam Eye Exam: EOMI, Normal appearance, PERRL. absent: Periorbital tenderness Pupil Exam: NORMAL ACCOMODATION, PERRL. absent: Irregular, Unequal - ENT Exam ENT Exam: Mucous Membranes Moist, Normal Exam, Normal Oropharynx - Neck Exam Neck Exam: Normal Inspection. absent: Lymphadenopathy, Thyromegaly - Respiratory Exam Respiratory Exam: Clear to Ausculation Bilateral, NORMAL BREATHING PATTERN. absent: Chest Wall Tenderness, Prolonged Expiratory Phase, Respiratory Distress - Cardiovascular Exam Cardiovascular Exam: REGULAR RHYTHM, +S1, +S2 - GI/Abdominal Exam GI & Abdominal Exam: Soft, Normal Bowel Sounds. absent: Rigid, Hyperactive Bowel Sounds - Extremities Exam Extremities Exam: Full ROM, Normal Inspection. absent: Joint Swelling, Pedal Edema - Back Exam Back Exam: NORMAL INSPECTION. absent: CVA tenderness (L), CVA tenderness (R), Full ROM, paraspinal tenderness - Neurological Exam Neurological Exam: Alert, Awake, CN II-XII Intact, Oriented x3 - Psychiatric Exam Psychiatric exam: Normal Affect, Normal Mood. absent: Depressed - Skin Skin Exam: Dry, Intact Assessment and Plan - Assessment and Plan (Free Text) Assessment: 41 Female with no significant PMHx presents to the ED with rectal bleeding x 7 days, suspecting lower GI bleed. Plan: Suspecting Chronic Lower GI Bleed GI consulted - Dr. Hoang- help appreciated SOLOMON performed by ED physician, no external hemorrhoids, no stool in rectal vault, no blood noted FOBT negative Expected to have 2 Units of PRBC tranfused. Repeat CBC was 9.1 Will continue to monitor. Colonoscopy showed some diverticulosis and internal hemorrhoids. No signs of masses. Imaging: CT Scan Abdomen/Pelvis with PO & IV contrast: mild hepatomegaly and fatty hepatic infiltration. small calcifications associated surrounding adjacent to white appears to represent a small approximately 11mm mass density located in the splenic hilar region. rule out small hemagioma, small hiatal hernia, suspect small ovarian cyst or prominent follicular cyst right ovary (For full report see Imaging report) Meds: Heart healthy diet Continue Protonix Continue Zofran PRN Iron Deficiency Anemia Last visit was in 2013 H/H was 9.8/30.4 (patient was at the time) On admission: H/H 5.2/17.3 s/p 2 Units of PRBC's. Anemia workup: Iron < 10, TIBC:445, % Saturation 2.2, Ferritin :166 Continue IV Ferrlecit Prophylactic Measures GI PPX: Protonix 40mg IVP daily DVT PPX: SCDs, VTE c/i Disposition: Patient is a full code Elected Neel to be her proxy in case she can no longer make medical decisions. <Hector Goode - Last Filed: 03/06/17 19:48> Objective - Vital Signs/Intake and Output Vital Signs (last 24 hours): Temp Pulse Resp BP Pulse Ox 97.1 F L 64 12 127/73 100 03/06/17 16:30 03/06/17 17:00 03/06/17 17:00 03/06/17 17:00 03/06/17 17:00 Intake and Output: 03/06/17 03/07/17 18:59 06:59 Intake Total 760 Balance 760 - Medications Medications: Current Medications Ferric Sodium Gluconate Complex 125 mg/ Sodium Chloride 110 mls @ 110 mls/hr IVPB DAILY [facility] Stop: 03/13/17 10:01 Last Admin: 03/06/17 10:46 Dose: 110 mls/hr Ondansetron HCl (Zofran Inj) 4 mg IVP Q6 PRN PRN Reason: Nausea/Vomiting Pantoprazole Sodium (Protonix Inj) 40 mg IVP DAILY [facility] Last Admin: 03/06/17 10:47 Dose: 40 mg - Labs Labs: 03/06/17 10:37 03/06/17 10:37 PT 11.3 SECONDS (9.7-12.2) 03/04/17 20:37 INR 1.0 03/04/17 20:37 APTT 26 SECONDS (21-34) 03/04/17 20:37 Attending/Attestation - Attestation I have personally seen and examined this patient.: Yes I have fully participated in the care of the patient.: Yes I have reviewed all pertinent clinical information, including history, physical exam and plan: Yes Notes (Text): 03/06/17 19:45 Patient was seen and examined at 8:30 AM 03/06/17. Exam, assessment and plan were gone over with the resident. She underwent Colonoscopy and Upper Endoscopy after my exam. Colonoscopy showed Large Internal Hemorrhoids and Diverticulosis involving the Ascending/Transeverse/Sigmoid Colon Upper EGD showed Small Hiatal Hernia and biopsies of the Gastric Antrum and Duodenem were taken. She has received a total of 4 units of blood since her admission. As long as her HgB/Hct remain stable then we will plan for discharge on morning 03/07/17 with further management through [facility]. Hector Goode D.O.
[2017-03-06] MEDS ORDERED: Midazolam 2 MG/2 ML VIAL ONE (15:56)
[2017-03-06] MEDS ORDERED: Propofol 10 mg/ml Inj (20 ML) ONE (15:56)
[2017-03-06] MEDS ORDERED: Lactated Ringer's 1,000 ML IV ONE ×2 (16:00→16:28)
--- NOTE | 2017-03-06 16:49 | CP.PCM.CON ---
History of Present Illness - History of Present Illness History of Present Illness: This is a 41 year old woman with rectal bleeding and anemia. Patient presented to the ER 03/04/2017 with complaints of weakness, headache and rectal bleeding for seven days. She had two or three bowel movments daily for the past week, each with blood. She had a similar episode of bleeding three or four months ago which resolved spontaneously. She then noted dizziness, lightheadedness, difficulty breathing, chest discomfort and fatigue. In the ER, the HGB was 5.2, iron <10, TIBC 445, ferritin 16.6, B12 501, folate pending. She denies having abdominal pain, nausea, vomiting, diarrhea, constipation. Review of Systems - Constitutional Constitutional: Malaise, Weakness. absent: Chills, Fever - Cardiovascular Cardiovascular: absent: Chest Pain, Palpitations - Respiratory Respiratory: absent: Cough, Dyspnea - Gastrointestinal Gastrointestinal: absent: Abdominal Pain, Constipation, Diarrhea, Nausea, Vomiting - Genitourinary Genitourinary: absent: Dysuria Past Patient History - Past Medical History & Family History Past Medical History?: No - Past Social History Smoking Status: Never Smoked - MUSCULOSKELETAL/RHEUMATOLOGICAL Hx Falls: No - PSYCHIATRIC Hx Substance Use: No - SURGICAL HISTORY Hx Surgeries: No - ANESTHESIA Hx Anesthesia: No Meds Allergies/Adverse Reactions: Allergies Allergy/AdvReac Type Severity Reaction Status Date / Time No Known Allergies Allergy Verified 03/04/17 17:58 - Medications Medications: Current Medications Ferric Sodium Gluconate Complex 125 mg/ Sodium Chloride 110 mls @ 110 mls/hr IVPB DAILY [facility] Stop: 03/13/17 10:01 Last Admin: 03/06/17 10:46 Dose: 110 mls/hr Ondansetron HCl (Zofran Inj) 4 mg IVP Q6 PRN PRN Reason: Nausea/Vomiting Pantoprazole Sodium (Protonix Inj) 40 mg IVP DAILY [facility] Last Admin: 03/06/17 10:47 Dose: 40 mg Physical Exam - Constitutional Appears: No Acute Distress - Head Exam Head Exam: ATRAUMATIC - Eye Exam Eye Exam: EOMI, PERRL - Neck Exam Neck exam: Negative for: Lymphadenopathy, Thyromegaly - Respiratory Exam Respiratory Exam: Rales, Rhonchi, Wheezes, NORMAL BREATHING PATTERN - Cardiovascular Exam Cardiovascular Exam: REGULAR RHYTHM, +S1, +S2. absent: Gallop, Rubs, Systolic Murmur - GI/Abdominal Exam GI & Abdominal Exam: Normal Bowel Sounds, Soft. absent: Mass, Organomegaly, Tenderness - Rectal Exam Rectal Exam: Deferred - Extremities Exam Extremities exam: Negative for: calf tenderness, pedal edema Results - Vital Signs Recent Vital Signs: Last Vital Signs Temp 97.1 F L 03/06/17 16:30 Pulse 71 03/06/17 16:30 Resp 12 03/06/17 16:30 BP 102/60 03/06/17 16:30 Pulse Ox 100 03/06/17 16:30 - Labs Result Diagrams: 03/06/17 10:37 03/06/17 10:37 Labs: Laboratory Results - last 24 hr 03/04/17 03/06/17 03/06/17 20:37 07:03 10:37 WBC 7.5 RBC 3.75 L Hgb 9.2 L D Hct 27.7 L MCV 73.9 L D MCH 24.7 L MCHC 33.4 RDW 26.3 H Plt Count 429 H MPV 7.5 Neut % (Auto) 54.1 Lymph % (Auto) 32.4 Cloud % (Auto) 7.7 Eos % (Auto) 4.9 H Baso % (Auto) 0.9 Neut # 4.1 Lymph # 2.4 Cloud # 0.6 Eos # 0.4 Baso # 0.1 Sodium Potassium Chloride Carbon Dioxide Anion Gap BUN Creatinine Est GFR ( Amer) Est GFR (Non-Af Amer) Random Glucose Calcium Phosphorus Magnesium Total Bilirubin AST ALT Alkaline Phosphatase Total Protein Albumin Globulin Albumin/Globulin Ratio Urine HCG, Qual Negative Blood Type O POSITIVE Antibody Screen Negative 03/06/17 10:37 WBC RBC Hgb Hct MCV MCH MCHC RDW Plt Count MPV Neut % (Auto) Lymph % (Auto) Cloud % (Auto) Eos % (Auto) Baso % (Auto) Neut # Lymph # Cloud # Eos # Baso # Sodium 139 Potassium 3.9 Chloride 105 Carbon Dioxide 23 Anion Gap 15 BUN 5 L Creatinine 0.6 L Est GFR ( Amer) > 60 Est GFR (Non-Af Amer) > 60 Random Glucose 86 Calcium 8.7 Phosphorus 4.8 H Magnesium 2.2 Total Bilirubin 0.8 AST 29 ALT 24 Alkaline Phosphatase 113 Total Protein 7.4 Albumin 3.7 Globulin 3.7 Albumin/Globulin Ratio 1.0 Urine HCG, Qual Blood Type Antibody Screen Assessment & Plan (1) Iron deficiency anemia Assessment and Plan: Patient has severe iron deficiency anemia, There is also a family history of colon cancer. CT scan showed a small hiatal hernia with mural thickening of the distal esophagus. Will schedule EGD and colonoscopy. Status: Acute
[2017-03-06 23:39] VITALS: RESP 20
[2017-03-07 06:20] VITALS: O2SAT 97
[2017-03-07 07:52] LABS: BASO # 0.1 K/uL (0.0-0.2); BASO % 0.7 % (0.0-2.0); EOS # 0.4 K/uL (0.0-0.7); EOS % 4.4 % (0.0-4.0); HEMOGLOBIN 9.3 g/dL (11.0-16.0); MEAN CELL VOLUME 73.8 fL (81.0-99.0); MEAN CORPUSCULAR HEMOGLOBIN 24.5 pg (27.0-31.0); MEAN CORPUSCULAR HGB CONC 33.2 g/dL (33.0-37.0); MEAN PLATELET VOLUME 7.5 fL (7.2-11.7); MONO # 0.7 K/uL (0.0-0.8); MONO % 8.3 % (0.0-10.0); NEUT % 61.6 % (50.0-75.0); NRBC % 0.2 % (0.0-2.0); RBC 3.79 Mil/uL (3.80-5.20); WHITE BLOOD COUNT 8.2 K/uL (4.8-10.8)
[2017-03-07 08:21] LABS: ALBUMIN 3.4 g/dL (3.5-5.0); ALT/SGPT 25 U/L (9-52); AST/SGOT 27 U/L (14-36); BLOOD UREA NITROGEN 8 mg/dL (7-17); CALCIUM 8.6 mg/dl (8.6-10.4); GFR AFRICAN-AMERICAN > 60; GFR NON-AFRICAN AMERICAN > 60; MAGNESIUM 2.1 mg/dL (1.6-2.3)
[2017-03-07] MEDS: Ferric Sodium Gluconat Complex 125 MG in Sodium Chloride 0.9% 100 ML IVPB SCH (10:32)
--- NOTE | 2017-03-07 10:34 | CP.PCM.PN ---
Subjective - Date & Time of Evaluation Date of Evaluation: 03/07/17 Time of Evaluation: 10:25 - Subjective Subjective: F/U anemia, GI bleed Covering Dr Zambrano Denies RB, melena, fever, chills, Sz, LOC, SHERIN, cough, abdom pain Objective - Vital Signs/Intake and Output Vital Signs (last 24 hours): Temp Pulse Resp BP Pulse Ox 98.1 F 72 20 101/62 97 03/07/17 06:00 03/07/17 06:00 03/07/17 06:00 03/07/17 06:00 03/07/17 06:00 Intake and Output: 03/07/17 03/07/17 06:59 18:59 Intake Total 400 Balance 400 - Medications Medications: Current Medications Ferric Sodium Gluconate Complex 125 mg/ Sodium Chloride 110 mls @ 110 mls/hr IVPB DAILY [facility] Stop: 03/13/17 10:01 Last Admin: 03/06/17 10:46 Dose: 110 mls/hr Ondansetron HCl (Zofran Inj) 4 mg IVP Q6 PRN PRN Reason: Nausea/Vomiting Pantoprazole Sodium (Protonix Inj) 40 mg IVP DAILY [facility] Last Admin: 03/06/17 10:47 Dose: 40 mg - Labs Labs: 03/07/17 07:44 03/07/17 07:44 PT 11.3 SECONDS (9.7-12.2) 03/04/17 20:37 INR 1.0 03/04/17 20:37 APTT 26 SECONDS (21-34) 03/04/17 20:37 - Constitutional Appears: Well - Neck Exam Neck Exam: absent: Tenderness - Respiratory Exam Respiratory Exam: Clear to Ausculation Bilateral - GI/Abdominal Exam GI & Abdominal Exam: Soft, Normal Bowel Sounds. absent: Tenderness - Neurological Exam Neurological Exam: Alert, Oriented x3 Assessment and Plan (1) Anemia Status: Acute (2) GI bleed Assessment & Plan: EGD and colon done. Hb is stable. Rec: Follow Hbs. No further inpatient GI planned. Status: Acute
[2017-03-07 15:10] VITALS: BP 98/60; PULSE 82; TEMP 98.3
--- NOTE | 2017-03-07 15:51 | CP.PCM.DIS ---
<Tomer Murray - Last Filed: 03/07/17 18:52> Provider - Provider Date of Admission: 03/04/17 21:25 Attending physician: Miky Boo MD Time Spent in preparation of Discharge (in minutes): 45 Hospital Course - Lab Results Lab Results: Most Recent Lab Values WBC 8.2 K/uL (4.8-10.8) 03/07/17 07:44 RBC 3.79 Mil/uL (3.80-5.20) L 03/07/17 07:44 Hgb 9.3 g/dL (11.0-16.0) L 03/07/17 07:44 Hct 27.9 % (34.0-47.0) L 03/07/17 07:44 MCV 73.8 fL (81.0-99.0) L 03/07/17 07:44 MCH 24.5 pg (27.0-31.0) L 03/07/17 07:44 MCHC 33.2 g/dL (33.0-37.0) 03/07/17 07:44 RDW 28.0 % (11.5-14.5) H 03/07/17 07:44 Plt Count 379 K/uL (130-400) 03/07/17 07:44 MPV 7.5 fL (7.2-11.7) 03/07/17 07:44 Neut % (Auto) 61.6 % (50.0-75.0) 03/07/17 07:44 Lymph % (Auto) 25.0 % (20.0-40.0) 03/07/17 07:44 Nelson % (Auto) 8.3 % (0.0-10.0) 03/07/17 07:44 Eos % (Auto) 4.4 % (0.0-4.0) H 03/07/17 07:44 Baso % (Auto) 0.7 % (0.0-2.0) 03/07/17 07:44 Neut # 5.0 K/uL (1.8-7.0) 03/07/17 07:44 Lymph # 2.0 K/uL (1.0-4.3) 03/07/17 07:44 Nelson # 0.7 K/uL (0.0-0.8) 03/07/17 07:44 Eos # 0.4 K/uL (0.0-0.7) 03/07/17 07:44 Baso # 0.1 K/uL (0.0-0.2) 03/07/17 07:44 PT 11.3 SECONDS (9.7-12.2) 03/04/17 20:37 INR 1.0 03/04/17 20:37 APTT 26 SECONDS (21-34) 03/04/17 20:37 Sodium 135 mmol/L (132-148) 03/07/17 07:44 Potassium 3.7 mmol/L (3.6-5.2) 03/07/17 07:44 Chloride 102 mmol/L (98-107) 03/07/17 07:44 Carbon Dioxide 24 mmol/L (22-30) 03/07/17 07:44 Anion Gap 13 (10-20) 03/07/17 07:44 BUN 8 mg/dL (7-17) 03/07/17 07:44 Creatinine 0.7 mg/dL (0.7-1.2) 03/07/17 07:44 Est GFR ( Amer) > 60 03/07/17 07:44 Est GFR (Non-Af Amer) > 60 03/07/17 07:44 Random Glucose 89 mg/dL (65-105) 03/07/17 07:44 Hemoglobin A1c 5.6 % (4.2-6.5) 03/05/17 10:07 Calcium 8.6 mg/dl (8.6-10.4) 03/07/17 07:44 Phosphorus 5.5 mg/dL (2.5-4.5) H 03/07/17 07:44 Magnesium 2.1 mg/dL (1.6-2.3) 03/07/17 07:44 Iron < 10 ug/dL (37-170) L 03/04/17 23:25 TIBC 445 ug/dL (250-450) 03/04/17 23:25 % Saturation 2.2 (20-55) L 03/04/17 23:25 Ferritin 16.6 ng/mL 03/04/17 23:25 Total Bilirubin 0.7 mg/dL (0.2-1.3) 03/07/17 07:44 AST 27 U/L (14-36) 03/07/17 07:44 ALT 25 U/L (9-52) 03/07/17 07:44 Alkaline Phosphatase 107 U/L (38-126) 03/07/17 07:44 Total Protein 6.9 g/dL (6.3-8.3) 03/07/17 07:44 Albumin 3.4 g/dL (3.5-5.0) L 03/07/17 07:44 Globulin 3.5 gm/dL (2.2-3.9) 03/07/17 07:44 Albumin/Globulin Ratio 1.0 (1.0-2.1) 03/07/17 07:44 Triglycerides 147 mg/dL (0-149) 03/05/17 04:00 Cholesterol 133 mg/dL (0-199) 03/05/17 04:00 LDL Cholesterol Direct 80 mg/dL (0-129) 03/05/17 04:00 HDL Cholesterol 19 mg/dL (30-70) L 03/05/17 04:00 Vitamin B12 501 pg/mL (239-931) 03/04/17 23:25 RBC Folate 1011 ng/mL RBC (>280) 03/04/17 07:39 Free T4 1.19 ng/dL (0.78-2.19) 03/05/17 10:07 TSH 3rd Generation 1.41 mIU/L (0.46-4.68) 03/05/17 04:00 Urine Color Yellow (YELLOW) 03/04/17 20:37 Urine Clarity Clear (Clear) 03/04/17 20:37 Urine pH 6.0 (5.0-8.0) 03/04/17 20:37 Ur Specific [place] 1.016 (1.003-1.030) 03/04/17 20:37 Urine Protein Negative mg/dL (NEGATIVE) 03/04/17 20:37 Urine Glucose (UA) Normal mg/dL (Normal) 03/04/17 20:37 Urine Ketones Negative mg/dL (NEGATIVE) 03/04/17 20:37 Urine Blood Negative (NEGATIVE) 03/04/17 20:37 Urine Nitrate Negative (NEGATIVE) 03/04/17 20:37 Urine Bilirubin Negative (NEGATIVE) 03/04/17 20:37 Urine Urobilinogen Normal mg/dL (0.2-1.0) 03/04/17 20:37 Ur Leukocyte Esterase Neg Alexia/uL (Negative) 03/04/17 20:37 Urine WBC (Auto) < 1 /hpf (0-5) 03/04/17 20:37 Urine RBC (Auto) < 1 /hpf (0-3) 03/04/17 20:37 Ur Squamous Epith Cells 1 /hpf (0-5) 03/04/17 20:37 Urine HCG, Qual Negative (NEGATIVE) 03/06/17 07:03 Stool Occult Blood Negative (NEGATIVE) 03/04/17 21:06 Blood Type O POSITIVE 03/04/17 20:37 Antibody Screen Negative 03/04/17 20:37 - Hospital Course Hospital Course: Discharge Summary PMD: None Consults: GI (Dr. Zambrano) PRINCIPAL DISCHARGE DIAGNOSES: Denies CC:bright red blood per rectum HISTORY OF PRESENT ILLNESS: 41 Female with no significant PMHx presents to the ED with rectal bleeding x 7 days. Patient reports on 02/25/17 she started to have bowel movements with BRBPR x 2-3 episodes daily. She reports not suffering from constipation so she would have normal daily BM. However, starting last week she would have 2-3 bloody BM daily. She started to feel dizzy, lightheaded, SOB, chest discomfort, weakness, and fatigue on . She reported this happened to her 3-4 months ago, lasting 2-3 days and then resolved on its own. She understood this is abnormal but was hesitant to come to the hospital. Last bloody BM was day of admission at 4 PM. Denied any endoscopy or colonoscopy in the past. Admitted to chills, chest discomfort, SOB , and weakness. Denied fever, headache, abdominal pain, n/v/d/c, or urinary symptoms. PMHx: Denied PSHx: Denied Meds: Denied SHx: Denied x3 FHx: Mother of colon cancer (age 50-60s) OBHx/GYNHx: LMP 02/23/17, normal menses every month, lasting 5-6 days using average 3-4 pads per day. 8 vaginal deliveries with no complications, no blood transfusions in the past. SUMMARY OF COURSE: 41 year old female with no significant medical history who was admitted between (03/04/17- 03/07/17). While admitted the patient had some imaging, procedures and lab work done. Patient was placed on a Pronix drip while admitted. Patient was found to be iron deficient anemic and was started on iron supplementation. While admitted the patient was seen by GI Dr. Zambrano. It was decided that she was to be have EGD and a Colonoscopy to look for the source of bleeding. Patient was seen by GI again and determined no further inpatient intervention was indicated at this time. Patient was discharged on iron supplementation (See further rec's below). Imaging: Endoscopy: large internal hemorrhoids, diverticulosis EKG: Normal sinus rhythm Abdomen/pelvis CT: mild hepatomegaly, angiomyolipoma, small hiatal hernia (for full report see [employer]) Colonoscopy 03/05: multiple sessile polyps. Biopsy reports pending. (See full report in chart) Endoscopy: Small hiatal hernia (Full report in chart.) DISCHARGE MEDICATIONS: Prescription for Ferrous Sulfate placed in front of chart. Please provide patient with a copy of the following instructions: 1). Schedule follow up with the [facility] located at [facility], [address] [place] [address] in [place], [place] by calling [phone] for an appointment to take place in the next 7 to 10 days. The doctors at this [email or web address] will help you to coordinate your health care. Through the health center you must arrange for the following: Ultrasound of your Abdomen/Pelvis for further evaluation of your spleen and ovaries. Bone Scan of your spine to make sure the lesions that were seen on your spine on CT Scan are benign. Follow up of the biopsies that were taken during your Colonoscopy/Upper Endoscopy. 2). Please have the following prescription filled at your pharmacy: Ferrous Sulfate 325 mg, 1 tablet by mouth 1x/day with breakfast, Disp #30, NO refills 3). Please take care and be well. Discharge Exam - Head Exam Head Exam: ATRAUMATIC, NORMAL INSPECTION, NORMOCEPHALIC - Eye Exam Eye Exam: EOMI, Normal appearance, PERRL. absent: Periorbital tenderness Pupil Exam: NORMAL ACCOMODATION, PERRL. absent: Irregular, Unequal - ENT Exam ENT Exam: Mucous Membranes Moist, Normal Oropharynx - Respiratory Exam Respiratory Exam: Clear to PA & Lateral, NORMAL BREATHING PATTERN, UNREMARKABLE. absent: Decreased Breath Sounds, Rales - Cardiovascular Exam Cardiovascular Exam: REGULAR RHYTHM, RRR, +S1, +S2. absent: Gallop, Rubs - GI/Abdominal Exam GI & Abdominal Exam: Normal Bowel Sounds, Unremarkable. absent: Hypoactive Bowel Sounds, Organomegaly - Extremities Exam Extremities exam: full ROM - Back Exam Back exam: NORMAL INSPECTION. absent: CVA tenderness (L), CVA tenderness (R), paraspinal tenderness - Neurological Exam Neurological exam: Alert, CN II-XII Intact, Oriented x3 - Psychiatric Exam Psychiatric exam: Normal Affect, Normal Mood - Skin Skin Exam: Dry, Intact, Normal Color Discharge Plan - Discharge Medications Prescriptions: Ferrous Sulfate 325 mg PO DAILY #30 tablet - Follow Up Plan Condition: FAIR Disposition: HOME/ ROUTINE Instructions: Ascorbic Acid/Cyanocobalamin/Ferrous Fumarate (By mouth), Gastrointestinal Bleeding (DC), Iron Rich Diet (DC), Iron Deficiency Anemia (DC) , Dizziness (GEN), Anemia (DC) Additional Instructions: Please provide patient with a copy of the following instructions: 1). Schedule follow up with the [facility] located at [facility], [address] [place] [address] in [place], [place] by calling [phone] for an appointment to take place in the next 7 to 10 days. The doctors at this [facility] will help you to coordinate your health care. Through the health center you must arrange for the following: Ultrasound of your Abdomen/Pelvis for further evaluation of your spleen and ovaries. Bone Scan of your spine to make sure the lesions that were seen on your spine on CT Scan are benign. Follow up of the biopsies that were taken during your Colonoscopy/Upper Endoscopy. 2). Please have the following prescription filled at your pharmacy: Ferrous Sulfate 325 mg, 1 tablet by mouth 1x/day with breakfast, Disp #30, NO refills 3). Please take care and be well. Hector Goode D.O. <Hector Goode - Last Filed: 03/07/17 20:24> Provider - Provider Date of Admission: 03/04/17 21:25 Attending physician: Miky Boo MD Hospital Course - Lab Results Lab Results: Most Recent Lab Values WBC 8.2 K/uL (4.8-10.8) 03/07/17 07:44 RBC 3.79 Mil/uL (3.80-5.20) L 03/07/17 07:44 Hgb 9.3 g/dL (11.0-16.0) L 03/07/17 07:44 Hct 27.9 % (34.0-47.0) L 03/07/17 07:44 MCV 73.8 fL (81.0-99.0) L 03/07/17 07:44 MCH 24.5 pg (27.0-31.0) L 03/07/17 07:44 MCHC 33.2 g/dL (33.0-37.0) 03/07/17 07:44 RDW 28.0 % (11.5-14.5) H 03/07/17 07:44 Plt Count 379 K/uL (130-400) 03/07/17 07:44 MPV 7.5 fL (7.2-11.7) 03/07/17 07:44 Neut % (Auto) 61.6 % (50.0-75.0) 03/07/17 07:44 Lymph % (Auto) 25.0 % (20.0-40.0) 03/07/17 07:44 Nelson % (Auto) 8.3 % (0.0-10.0) 03/07/17 07:44 Eos % (Auto) 4.4 % (0.0-4.0) H 03/07/17 07:44 Baso % (Auto) 0.7 % (0.0-2.0) 03/07/17 07:44 Neut # 5.0 K/uL (1.8-7.0) 03/07/17 07:44 Lymph # 2.0 K/uL (1.0-4.3) 03/07/17 07:44 Nelson # 0.7 K/uL (0.0-0.8) 03/07/17 07:44 Eos # 0.4 K/uL (0.0-0.7) 03/07/17 07:44 Baso # 0.1 K/uL (0.0-0.2) 03/07/17 07:44 PT 11.3 SECONDS (9.7-12.2) 03/04/17 20:37 INR 1.0 03/04/17 20:37 APTT 26 SECONDS (21-34) 03/04/17 20:37 Sodium 135 mmol/L (132-148) 03/07/17 07:44 Potassium 3.7 mmol/L (3.6-5.2) 03/07/17 07:44 Chloride 102 mmol/L (98-107) 03/07/17 07:44 Carbon Dioxide 24 mmol/L (22-30) 03/07/17 07:44 Anion Gap 13 (10-20) 03/07/17 07:44 BUN 8 mg/dL (7-17) 03/07/17 07:44 Creatinine 0.7 mg/dL (0.7-1.2) 03/07/17 07:44 Est GFR ( Amer) > 60 03/07/17 07:44 Est GFR (Non-Af Amer) > 60 03/07/17 07:44 Random Glucose 89 mg/dL (65-105) 03/07/17 07:44 Hemoglobin A1c 5.6 % (4.2-6.5) 03/05/17 10:07 Calcium 8.6 mg/dl (8.6-10.4) 03/07/17 07:44 Phosphorus 5.5 mg/dL (2.5-4.5) H 03/07/17 07:44 Magnesium 2.1 mg/dL (1.6-2.3) 03/07/17 07:44 Iron < 10 ug/dL (37-170) L 03/04/17 23:25 TIBC 445 ug/dL (250-450) 03/04/17 23:25 % Saturation 2.2 (20-55) L 03/04/17 23:25 Ferritin 16.6 ng/mL 03/04/17 23:25 Total Bilirubin 0.7 mg/dL (0.2-1.3) 03/07/17 07:44 AST 27 U/L (14-36) 03/07/17 07:44 ALT 25 U/L (9-52) 03/07/17 07:44 Alkaline Phosphatase 107 U/L (38-126) 03/07/17 07:44 Total Protein 6.9 g/dL (6.3-8.3) 03/07/17 07:44 Albumin 3.4 g/dL (3.5-5.0) L 03/07/17 07:44 Globulin 3.5 gm/dL (2.2-3.9) 03/07/17 07:44 Albumin/Globulin Ratio 1.0 (1.0-2.1) 03/07/17 07:44 Triglycerides 147 mg/dL (0-149) 03/05/17 04:00 Cholesterol 133 mg/dL (0-199) 03/05/17 04:00 LDL Cholesterol Direct 80 mg/dL (0-129) 03/05/17 04:00 HDL Cholesterol 19 mg/dL (30-70) L 03/05/17 04:00 Vitamin B12 501 pg/mL (239-931) 03/04/17 23:25 RBC Folate 1011 ng/mL RBC (>280) 03/04/17 07:39 Free T4 1.19 ng/dL (0.78-2.19) 03/05/17 10:07 TSH 3rd Generation 1.41 mIU/L (0.46-4.68) 03/05/17 04:00 Urine Color Yellow (YELLOW) 03/04/17 20:37 Urine Clarity Clear (Clear) 03/04/17 20:37 Urine pH 6.0 (5.0-8.0) 03/04/17 20:37 Ur Specific [place] 1.016 (1.003-1.030) 03/04/17 20:37 Urine Protein Negative mg/dL (NEGATIVE) 03/04/17 20:37 Urine Glucose (UA) Normal mg/dL (Normal) 03/04/17 20:37 Urine Ketones Negative mg/dL (NEGATIVE) 03/04/17 20:37 Urine Blood Negative (NEGATIVE) 03/04/17 20:37 Urine Nitrate Negative (NEGATIVE) 03/04/17 20:37 Urine Bilirubin Negative (NEGATIVE) 03/04/17 20:37 Urine Urobilinogen Normal mg/dL (0.2-1.0) 03/04/17 20:37 Ur Leukocyte Esterase Neg Alexia/uL (Negative) 03/04/17 20:37 Urine WBC (Auto) < 1 /hpf (0-5) 03/04/17 20:37 Urine RBC (Auto) < 1 /hpf (0-3) 03/04/17 20:37 Ur Squamous Epith Cells 1 /hpf (0-5) 03/04/17 20:37 Urine HCG, Qual Negative (NEGATIVE) 03/06/17 07:03 Stool Occult Blood Negative (NEGATIVE) 03/04/17 21:06 Blood Type O POSITIVE 03/04/17 20:37 Antibody Screen Negative 03/04/17 20:37 Attending/Attestation - Attestation I have personally seen and examined this patient.: Yes I have fully participated in the care of the patient.: Yes I have reviewed all pertinent clinical information, including history, physical exam and plan: Yes Notes (Text): 03/07/17 20:22 Patient was seen and examined at 2:30 PM Discharge plan was discussed with resident. Exam was completely unremarkable She is no longer having any bright red blood per rectum She has NO complaints upon FULL ROS Please see discharge instructions. Hector Goode D.O.
== END 2017-03-07 16:35 | disposition home or self-care (01) | DRG 379 ==
LOC: C.ER 17:05 → C.9E 21:25 → C.3T 03-05 13:37
PROVIDERS: ADMIT Internal Medicine; ATTEND Internal Medicine
PROC: 0DB68ZX Excision of Stomach, Via Natural or Artificial Opening Endoscopic, Diagnostic (ICD-10-PCS; 2017-03-06)
PROC: 0DJD8ZZ Inspection of Lower Intestinal Tract, Via Natural or Artificial Opening Endoscopic (ICD-10-PCS; principal; 2017-03-06 16:03)
PROC: 0DB98ZX Excision of Duodenum, Via Natural or Artificial Opening Endoscopic, Diagnostic (ICD-10-PCS; 2017-03-06 16:03)
DX: K92.2 Gastrointestinal hemorrhage, unspecified (principal); D50.9 Iron deficiency anemia, unspecified; K57.30 Diverticulosis of large intestine without perforation or abscess without bleeding; K44.9 Diaphragmatic hernia without obstruction or gangrene; K64.8 Other hemorrhoids; Z80.0 Family history of malignant neoplasm of digestive organs